=== PATIENT | female | born 1955 | race Caucasian/White ===

== ENCOUNTER 2024-08-19 10:11 | Emergency (ER) | payer OTHER ==
--- NOTE | 2024-08-19 11:54 | RAD REPORT ---
EXAMINATION: XR RIGHT TIBIA AND FIBULA CLINICAL INDICATION: PAIN TECHNIQUE:Two view radiograph of the right tibia and fibula were obtained. COMPARISON: No prior exam. FINDINGS: Right total knee arthroplasty is present. There is evidence of a wawha-[id number]-[id number] joint e ffusion right knee. No acute fracture is seen.
--- NOTE | 2024-08-19 11:59 | RAD REPORT ---
EXAMINATION: XR RIGHT KNEE CLINICAL INDICATION: Female, 69 years old. PAIN TECHNIQUE: Multiple views of the right knee were obtained. COMPARISON: No prior exam. FINDINGS: Moderate joint effusion likely present. Total knee arthroplasty is seen. No acute fracture visualized.
--- NOTE | 2024-08-19 12:49 | ER ---
Nurse's Notes [facility] Name: Zohra Shah Age: 69 yrs Sex: Female : 1955 Arrival Date: 08/19/2024 Time: 10:11 Bed 14 Private MD: Diagnosis: Effusion, right knee Presentation: 08/19 10:24 Chief complaint: Patient states: Mechanical fall, twisted right knee. Hx of CVA with jl7 left sided deficits. Coronavirus screen: At this time, the client does not indicate any symptoms associated with coronavirus-19. Ebola Screen: No symptoms or risks identified at this time. Initial Sepsis Screen: Does the patient meet any 2 criteria? No. Patient's initial sepsis screen is negative. Does the patient have a suspected source of infection? No. Patient's initial sepsis screen is negative. Risk Assessment: Do you want to hurt yourself or someone else? Patient reports no desire to harm self or others. Onset of symptoms was August 18, 2024. 10:24 Method Of Arrival: Wheelchair jl7 10:24 Acuity: PINKY 4 jl7 Triage Assessment: 10:29 General: Appears in no apparent distress. uncomfortable, Behavior is calm, cooperative, jl7 appropriate for age. Pain: Complains of pain in right knee Pain currently is 8 out of 10 on a pain scale. Musculoskeletal: Swelling present in right knee. Injury Description: sprain. Historical: - Allergies: 10:26 terramycin; jl7 10:26 erythromycin; jl7 - PMHx: 10:26 Hypertensive disorder; jl7 10:29 Cerebrovascular accident; jl7 - PSHx: 10:26 right knee; jl7 - Immunization history:: Adult Immunizations unknown. - Infectious Disease History:: Denies. - Social history:: Smoking status: Patient denies any tobacco usage or history of. - Family history:: not pertinent. - Hospitalizations: : No recent hospitalization is reported. Screenin:30 [facility] ED Fall Risk Assessment (Adult) History of falling in the last 3 months, db including since admission Yes- single mechanical fall (1 pt) Confusion or Disorientation No (0 pts) Intoxicated or Sedated No (0 pts) Impaired Gait No (0 pts) Mobility Assist Device Used No (0 pt) Altered Elimination No (0 pt) Score/Fall Risk Level 0 - 2 = Low Risk Oriented to surroundings, Maintained a safe environment. Abuse screen: Denies threats or abuse. Denies injuries from another. Nutritional screening: No deficits noted. Tuberculosis screening: No symptoms or risk factors identified. Assessment: 12:30 Reassessment: Patient appears in no apparent distress at this time. Patient and/or db family updated on plan of care and expected duration. Pain level reassessed. Patient is alert, oriented x 3, equal unlabored respirations, skin warm/dry/pink. General: Appears in no apparent distress. comfortable, Behavior is calm, cooperative. Neuro: Level of Consciousness is awake, alert, obeys commands, Oriented to person, place, time, situation. Respiratory: Airway is patent Respiratory effort is even, unlabored, Respiratory pattern is regular, symmetrical. Musculoskeletal: Reports pain in right knee. 13:23 Reassessment: Patient appears in no apparent distress at this time. Patient and/or db family updated on plan of care and expected duration. Pain level reassessed. Patient is alert, oriented x 3, equal unlabored respirations, skin warm/dry/pink. Vital Signs: 10:24 BP 146 / 58; Pulse 94; Resp 17; Temp 98; Pulse Ox 97% ; Weight 56.7 kg; Height 4 ft. 11 jl7 in. ; Pain 8/10; 13:23 BP 138 / 60; Pulse 88; Resp 16; Pulse Ox 97% on R/A; db 10:24 Body Mass Index 25.25 (56.70 kg, 149.86 cm) jl7 10:24 Pain Scale: Adult jl7 ED Course: 10:17 Patient arrived in ED. al6 10:18 Ottoniel Lam MD is Attending Physician. rn 10:26 Triage completed. jl7 10:29 Arm band placed on right wrist. jl7 10:35 Olive Lindsay, JOSEPH is Primary Nurse. db 11:05 XRAY Knee RIGHT 3 view In Process Unspecified. EDMS 11:05 XRAY Tib Fib RIGHT In Process Unspecified. EDMS 12:30 Patient has correct armband on for positive identification. Bed in low position. Call db light in reach. Side rails up X 1. Warm blanket given. Pillow given. 13:15 Knee immobilizer applied on right knee. db 13:23 Provided Education on: DISCHARGE AND FOLLOWUP. db 13:23 No provider procedures requiring assistance completed. Patient did not have IV access db during this emergency room visit. Administered Medications: 13:00 Drug: traMADol PO 50 mg PO once Route: PO; db 13:20 Follow up: Response: No adverse reaction db Medication: 12:30 VIS not applicable for this client. db Outcome: 12:48 Discharge ordered by . rn 13:23 Discharged to home via wheelchair, db 13:23 Condition: stable 13:23 Discharge instructions given to patient, family, Instructed on discharge instructions, follow up and referral plans. Prescriptions given X 1, 13:25 Patient left the ED. db Signatures: Dispatcher [employer] EDMS Ottoniel Lam MD MD rn Leal, Jahala RN RN Olive Richard RN RN Shanda Velazquez Corrections: (The following items were deleted from the chart) 10:29 10:26 Allergies: No Known Allergies; min jlKenia
--- NOTE | 2024-08-19 12:49 | EDPHYS ---
Physician Documentation [facility] Name: Zohra Shah Age: 69 yrs Sex: Female : 1955 Arrival Date: 08/19/2024 Time: 10:11 Bed 14 Private MD: ED Physician Ottoniel Lam HPI: 08/19 12:46 This 69 yrs old Female presents to ER via Wheelchair with complaints of Knee Injury. rn 12:46 Patient reports twisting fall injury to the right knee yesterday. Able to ambulate but rn right knee is swollen. Has had a total right knee replacement. No other injury. Reports injured right ankle a few weeks ago but overall feels like it is healing.. Historical: - Allergies: 10:26 terramycin; jl7 10:26 erythromycin; jl7 - PMHx: 10:26 Hypertensive disorder; jl7 10:29 Cerebrovascular accident; jl7 - PSHx: 10:26 right knee; jl7 - Immunization history:: Adult Immunizations unknown. - Infectious Disease History:: Denies. - Social history:: Smoking status: Patient denies any tobacco usage or history of. - Family history:: not pertinent. - Hospitalizations: : No recent hospitalization is reported. ROS: 12:46 Constitutional: Negative for fever, chills, and weight loss, Neck: Negative for injury, rn pain, and swelling, Back: Negative for injury and pain, MS/Extremity: Positive for right knee injury and swelling Neuro: Negative for headache, weakness, numbness, tingling, and seizure, Exam: 12:46 Constitutional: This is a well developed, well nourished patient who is awake, alert, rn and in no acute distress. MS/ Extremity: Moderate right knee effusion with swelling. No cyanosis. No focal bony tenderness. No gross deformity. Full extension and flexion of right knee with minimal pain. Vital Signs: 10:24 BP 146 / 58; Pulse 94; Resp 17; Temp 98; Pulse Ox 97% ; Weight 56.7 kg; Height 4 ft. 11 jl7 in. ; Pain 8/10; 13:23 BP 138 / 60; Pulse 88; Resp 16; Pulse Ox 97% on R/A; db 10:24 Body Mass Index 25.25 (56.70 kg, 149.86 cm) jl7 10:24 Pain Scale: Adult jl7 MDM: 10:18 Medical Screening Exam initiated rn 12:46 Differential diagnosis: closed fracture, contusion, Knee effusion. Data reviewed: vital rn signs, nurses notes, radiologic studies, plain films, and as a result, I will discharge patient. Counseling: I had a detailed discussion with the patient and/or guardian regarding the historical points, exam findings, and any diagnostic results supporting the discharge/admit diagnosis, radiology results, the need for outpatient follow up, to return to the emergency department if symptoms worsen or persist or if there are any questions or concerns that arise at home. Special discussion: I discussed with the patient/guardian in detail that at this point there is no indication for admission to the hospital. It is understood, however, that if the symptoms persist or worsen the patient needs to return immediately for re-evaluation. Further emergent ED testing is not indicated at this point in time. I discussed with the patient/guardian in detail the need to arrange with the PCP or specialist further outpatient testing, MRI, Based on the history and exam findings, there is no indication for further emergent testing or inpatient evaluation. I discussed with the patient/guardian the need to see the orthopedic surgeon for further evaluation of the symptoms. 08/19 10:25 Order name: XRAY Knee RIGHT 3 view; Complete Time: 12:24 rn 08/19 10:25 Order name: XRAY Tib Fib RIGHT; Complete Time: 12:24 rn 08/19 12:27 Order name: Knee Immobilizer; Complete Time: 13:20 rn Administered Medications: 13:00 Drug: traMADol PO 50 mg PO once Route: PO; db 13:20 Follow up: Response: No adverse reaction db Disposition Summary: 08/19/24 12:48 Discharge Ordered Notes: Location: Home rn Problem: new rn Symptoms: have improved rn Condition: Stable rn Diagnosis - Effusion, right knee rn Followup: rn - With: Private Physician - When: As needed - Reason: Recheck today's complaints, Re-evaluation by your physician Discharge Instructions: - Discharge Summary Sheet rn - Knee Effusion rn - How to Use a Knee Immobilizer rn Forms: - Medication Reconciliation Form rn - Antibiotic consultant intern - Prescription Opioid Use rn - Patient Portal Instructions rn - Leadership Thank You Letter rn Prescriptions: - Tramadol 50 mg Oral Tablet - take 1 tablet ORAL route every 8 hours as needed; 12 tablet; Refills: 0, rn Product Selection Permitted Signatures: Dispatcher [employer] EDMS Ottoniel Lam MD MD rn Leal, Jahala, RN RN Olive Richard RN RN db Corrections: (The following items were deleted from the chart) 10:25 10:25 Knee Right 3 View+RAD.RAD.BRZ ordered. EDMS EDMS 10: 10: Tib Fib Right+RAD.RAD.BRZ ordered. EDMS EDMS 10: 10: Allergies: No Known Allergies; min jl7
[2024-08-19] MEDS ORDERED: TRAMADOL HCL 50 MG TAB ONE (13:07)
[2024-08-19 14:30] VITALS: BP 138/60; TEMP 98; O2SAT 97
== END 2024-08-19 13:25 | disposition home or self-care (01) ==
LOC: ER 10:11
DX: M25.461 Effusion, right knee (principal); Z96.651 Presence of right artificial knee joint
CPT/HCPCS: 99283